=== PATIENT | male | born 1940 | race Caucasian/White ===

== ENCOUNTER 2017-07-22 09:36 | Inpatient (IN) ==
[2017-07-22] MEDS ORDERED: methylPREDNISolone SOD SUC 125 MG/2 ML VIAL IV STA (09:58)
[2017-07-22] MEDS ORDERED: ALBUTEROL 2.5 MG/3 ML NEB RESP TX SCH (10:00)
[2017-07-22 10:05] LABS: Basophils # 0.1 10*3/uL (0.0-0.2); Basophils % 0.5 % (0.0-0.8); Eosinophils % 0.2 % (0.00-10.9); Hemoglobin 9.9 GM/DL (14.0-18.0); Immature Granulocytes % 0.5 %; Immature Granulocytes Absolute 0.09 #; Lymphocytes # 0.7 10*3/uL (1.4-4.0); Mean Corpuscular Hemoglobin 25 PG (27-34); Mean Corpuscular Volume 82.3 FL (87-102); Mean Platelet Volume 8.9 FL (9.6-12.0); Monocytes # 1.5 10*3/uL (0.11-0.8); Monocytes % 8.7 % (1.7-12.7); Neutrophils # 15.1 10*3/uL (1.4-7.4); Neutrophils % 86.1 % (38.7-73.9); Platelet Count 487 T/CUMM (130-400); Red Blood Count 4.01 MC/CUMM (3.8-5.5); Red Cell Distribution Width 16.2 % (9.3-17.3); White Blood Count 17.6 T/CUMM (4-12)
[2017-07-22] MEDS ORDERED: methylPREDNISolone SOD SUC 125 MG/2 ML VIAL ONE (10:06)
[2017-07-22 10:13] LABS: INR 1.5; PT Patient Result 15.4 SECS; Partial Thromboplastin Time 36.2 SECS (0-40)
[2017-07-22 10:23] LABS: Alanine Aminotransferase 33 U/L (16-61); Albumin 2.9 G/DL (3.4-5.0); Alkaline Phosphatase 102 U/L (45-117); Aspartate Amino Transferase 36 U/L (0-37); Blood Urea Nitrogen 15 MG/DL (7-18); Calcium 9.3 MG/DL (8.5-10.1); Glucose 143 MG/DL (74-106); Osmolality,Calculated 266.5 MOS/KG (273-304); Potassium 3.9 MMOL/L (3.5-5.1); Sodium 132 MMOL/L (136-145); Total Protein 7.3 G/DL (6.4-8.3); Troponin I Only < 0.015 NG/ML (0.00-0.045)
[2017-07-22 10:37] LABS: Band Neutrophils 1 % (0-10); Hypochromasia 1+; Lymphocytes 5 % (20-55); Ovalocytes Slight; Platelet Estimate Adequate; Segmented Neutrophils 87 % (50-85); Total Cells Counted 100
[2017-07-22] MEDS ORDERED: LEVOFLOXACIN INJ 500 MG in PREMIX 1 EACH IV STA (11:51)
[2017-07-22] MEDS ORDERED: LEVOFLOXACIN INJ 100 ML IV ONE (12:20)
[2017-07-22] MEDS ORDERED: ACETAMINOPHEN 325 MG TABLET PO PRN (13:25)
[2017-07-22] MEDS ORDERED: ONDANSETRON 4 MG/2 ML VIAL IV PRN (13:25)
[2017-07-22] MEDS ORDERED: ALBUTEROL 2.5 MG/3 ML NEB RESP TX PRN (15:00)
[2017-07-22 15:26] LABS: Apearance,Urine Slightly Hazy (Clear); Bilirubin,Urine Negative (Negative); Blood, Urine Moderate mg/dL (Negative); Glucose,Urine (UA) 50 mg/dL (Negative); Ketones,Urine 20 mg/dL (Negative); Mucus,Urine Few /LPF (Occasional); Nitrite,Urine Negative (Negative); Protein,Urine 100 MG/DL; RBC,Urine 16 /HPF (0-4); Squamous Epithelial Cell,Urine Occasional /HPF (0-10); Urine Color Yellow (Yellow); Urine Specific Gravity 1.024 (1.001-1.035); Urine Urobilinogen < 2.0 EU/DL (0.2-1.0); WBC,Urine 1 /HPF (0-6)
[2017-07-22] MEDS: SODIUM CHLORIDE 0.45% 1,000 ML IV SCH (15:36)
[2017-07-22] MEDS: metFORMIN 500 MG TABLET PO SCH (16:17)
[2017-07-22] MEDS: methylPREDNISolone SOD SUC 40 MG/1 ML VIAL IV SCH (16:17)
[2017-07-22] MEDS: CALCIUM (CARBONATE)/VITAMIN D 500 MG-200 UNIT TABLET PO SCH (21:36)
[2017-07-22] MEDS: DOCUSATE SODIUM 100 MG CAPSULE PO SCH (21:37)
[2017-07-22] MEDS: ENOXAPARIN 40 MG/0.4 ML SYRINGE SUBCUT SCH (21:38)
[2017-07-22] MEDS: LORazepam 0.5 MG TABLET PO SCH (21:38)
[2017-07-22] MEDS: BUDESONIDE/FORMOTEROL 160-4.5 INHALER 6 GM INH SCH (21:39)
[2017-07-23] MEDS: methylPREDNISolone SOD SUC 40 MG/1 ML VIAL IV SCH ×3 (00:31→16:34)
[2017-07-23] MEDS: BUDESONIDE/FORMOTEROL 160-4.5 INHALER 6 GM INH SCH ×2 (08:43→22:25)
[2017-07-23] MEDS: CALCIUM (CARBONATE)/VITAMIN D 500 MG-200 UNIT TABLET PO SCH ×2 (08:43→22:24)
[2017-07-23] MEDS: DOCUSATE SODIUM 100 MG CAPSULE PO SCH ×2 (08:44→22:24)
[2017-07-23] MEDS: PANTOPRAZOLE 40 MG TABLET PO SCH (08:44)
[2017-07-23] MEDS: THEOPHYLLINE ER (24 HR) 400 MG TABLET PO SCH (08:44)
[2017-07-23] MEDS: CETIRIZINE 10 MG TABLET PO SCH (08:44)
[2017-07-23] MEDS: hydroCHLOROthiazide 12.5 MG CAPSULE PO SCH (08:46)
[2017-07-23] MEDS: metFORMIN 500 MG TABLET PO SCH ×2 (08:48→16:34)
[2017-07-23] MEDS: cefTRIAXone 1,000 MG in SYRINGE 1 EACH IV SCH (10:19)
[2017-07-23] MEDS: SODIUM CHLORIDE 0.45% 1,000 ML IV SCH (17:58)
[2017-07-23] MEDS: ENOXAPARIN 40 MG/0.4 ML SYRINGE SUBCUT SCH (22:24)
[2017-07-23] MEDS: LORazepam 0.5 MG TABLET PO SCH (22:24)
[2017-07-24] MEDS: methylPREDNISolone SOD SUC 40 MG/1 ML VIAL IV SCH ×3 (01:25→17:51)
[2017-07-24] MEDS: BUDESONIDE/FORMOTEROL 160-4.5 INHALER 6 GM INH SCH ×2 (09:00→20:22)
[2017-07-24] MEDS: hydroCHLOROthiazide 12.5 MG CAPSULE PO SCH (09:35)
[2017-07-24] MEDS: CALCIUM (CARBONATE)/VITAMIN D 500 MG-200 UNIT TABLET PO SCH ×2 (09:35→20:22)
[2017-07-24] MEDS: PANTOPRAZOLE 40 MG TABLET PO SCH (09:35)
[2017-07-24] MEDS: THEOPHYLLINE ER (24 HR) 400 MG TABLET PO SCH (09:35)
[2017-07-24] MEDS: metFORMIN 500 MG TABLET PO SCH ×2 (09:36→17:50)
[2017-07-24] MEDS: DOCUSATE SODIUM 100 MG CAPSULE PO SCH ×2 (09:36→20:22)
[2017-07-24] MEDS: cefTRIAXone 1,000 MG in SYRINGE 1 EACH IV SCH (09:39)
[2017-07-24] MEDS: CETIRIZINE 10 MG TABLET PO SCH (16:16)
[2017-07-24] MEDS: ENOXAPARIN 40 MG/0.4 ML SYRINGE SUBCUT SCH (20:22)
[2017-07-24] MEDS: LORazepam 0.5 MG TABLET PO SCH (20:22)
[2017-07-24] MEDS: SODIUM CHLORIDE 0.45% 1,000 ML IV SCH (21:50)
[2017-07-25] MEDS: methylPREDNISolone SOD SUC 40 MG/1 ML VIAL IV SCH (01:09)
[2017-07-25 06:17] LABS: Basophils % 0.1 % (0.0-0.8); Hematocrit 29.9 VOL% (42.0-52.0); Hemoglobin 9.3 GM/DL (14.0-18.0); Immature Granulocytes % 0.6 %; Immature Granulocytes Absolute 0.05 #; Lymphocytes # 0.7 10*3/uL (1.4-4.0); Lymphocytes % 8.7 % (21.2-54.2); Mean Corpuscular HGB Conc 31.1 GM/DL (32-36); Mean Corpuscular Hemoglobin 25 PG (27-34); Mean Corpuscular Volume 80.8 FL (87-102); Mean Platelet Volume 8.7 FL (9.6-12.0); Monocytes # 0.4 10*3/uL (0.11-0.8); Monocytes % 4.4 % (1.7-12.7); Neutrophils # 6.9 10*3/uL (1.4-7.4); Neutrophils % 86.2 % (38.7-73.9); Platelet Count 507 T/CUMM (130-400); Red Cell Distribution Width 16.2 % (9.3-17.3)
[2017-07-25 06:53] LABS: Calcium 8.7 MG/DL (8.5-10.1); Potassium 4.7 MMOL/L (3.5-5.1)
[2017-07-25] MEDS: metFORMIN 500 MG TABLET PO SCH ×2 (09:00→16:47)
[2017-07-25] MEDS: CALCIUM (CARBONATE)/VITAMIN D 500 MG-200 UNIT TABLET PO SCH ×2 (09:22→20:42)
[2017-07-25] MEDS: THEOPHYLLINE ER (24 HR) 400 MG TABLET PO SCH (09:22)
[2017-07-25] MEDS: hydroCHLOROthiazide 12.5 MG CAPSULE PO SCH (09:23)
[2017-07-25] MEDS: predniSONE 10 MG TABLET PO SCH (09:23)
[2017-07-25] MEDS: PANTOPRAZOLE 40 MG TABLET PO SCH (09:23)
[2017-07-25] MEDS: cefTRIAXone 1,000 MG in SYRINGE 1 EACH IV SCH (09:24)
[2017-07-25] MEDS: DOCUSATE SODIUM 100 MG CAPSULE PO SCH ×2 (09:24→20:42)
[2017-07-25] MEDS: BUDESONIDE/FORMOTEROL 160-4.5 INHALER 6 GM INH SCH ×2 (10:54→20:44)
[2017-07-25] MEDS: CETIRIZINE 10 MG TABLET PO SCH (10:54)
[2017-07-25] MEDS: LORazepam 0.5 MG TABLET PO SCH (20:42)
[2017-07-25] MEDS: ENOXAPARIN 40 MG/0.4 ML SYRINGE SUBCUT SCH (20:43)
[2017-07-26] MEDS: SODIUM CHLORIDE 0.45% 1,000 ML IV SCH (01:35)
[2017-07-26] MEDS: hydroCHLOROthiazide 12.5 MG CAPSULE PO SCH (08:25)
[2017-07-26] MEDS: CETIRIZINE 10 MG TABLET PO SCH (08:25)
[2017-07-26] MEDS: CALCIUM (CARBONATE)/VITAMIN D 500 MG-200 UNIT TABLET PO SCH ×2 (08:25→21:30)
[2017-07-26] MEDS: DOCUSATE SODIUM 100 MG CAPSULE PO SCH ×2 (08:25→21:30)
[2017-07-26] MEDS: predniSONE 10 MG TABLET PO SCH (08:25)
[2017-07-26] MEDS: THEOPHYLLINE ER (24 HR) 400 MG TABLET PO SCH (08:25)
[2017-07-26] MEDS: PANTOPRAZOLE 40 MG TABLET PO SCH (08:25)
[2017-07-26] MEDS: metFORMIN 500 MG TABLET PO SCH ×2 (08:26→17:05)
[2017-07-26] MEDS: cefTRIAXone 1,000 MG in SYRINGE 1 EACH IV SCH (08:26)
[2017-07-26] MEDS ORDERED: FUROSEMIDE 40 MG/4 ML VIAL IV ONE (08:39)
[2017-07-26] MEDS: BUDESONIDE/FORMOTEROL 160-4.5 INHALER 6 GM INH SCH ×2 (10:02→21:31)
[2017-07-26] MEDS: LORazepam 0.5 MG TABLET PO SCH (21:30)
[2017-07-26] MEDS: ENOXAPARIN 40 MG/0.4 ML SYRINGE SUBCUT SCH (21:31)
[2017-07-27] MEDS: metFORMIN 500 MG TABLET PO SCH ×2 (08:45→17:48)
[2017-07-27] MEDS: CALCIUM (CARBONATE)/VITAMIN D 500 MG-200 UNIT TABLET PO SCH ×2 (08:45→21:10)
[2017-07-27] MEDS: hydroCHLOROthiazide 12.5 MG CAPSULE PO SCH (08:45)
[2017-07-27] MEDS: DOCUSATE SODIUM 100 MG CAPSULE PO SCH ×2 (08:45→21:10)
[2017-07-27] MEDS: THEOPHYLLINE ER (24 HR) 400 MG TABLET PO SCH (08:46)
[2017-07-27] MEDS: PANTOPRAZOLE 40 MG TABLET PO SCH (08:46)
[2017-07-27] MEDS: predniSONE 10 MG TABLET PO SCH (08:46)
[2017-07-27] MEDS: CETIRIZINE 10 MG TABLET PO SCH (08:47)
[2017-07-27] MEDS: BUDESONIDE/FORMOTEROL 160-4.5 INHALER 6 GM INH SCH ×2 (08:49→21:12)
[2017-07-27] MEDS: cefTRIAXone 1,000 MG in SYRINGE 1 EACH IV SCH (08:49)
[2017-07-27] MEDS: LORazepam 0.5 MG TABLET PO SCH (21:10)
[2017-07-27] MEDS: ENOXAPARIN 40 MG/0.4 ML SYRINGE SUBCUT SCH (21:10)
[2017-07-28 07:54] VITALS: BP 141/68
[2017-07-28] MEDS: metFORMIN 500 MG TABLET PO SCH (08:24)
[2017-07-28] MEDS: DOCUSATE SODIUM 100 MG CAPSULE PO SCH (08:24)
[2017-07-28] MEDS: hydroCHLOROthiazide 12.5 MG CAPSULE PO SCH (08:25)
[2017-07-28] MEDS: CALCIUM (CARBONATE)/VITAMIN D 500 MG-200 UNIT TABLET PO SCH (08:25)
[2017-07-28] MEDS: THEOPHYLLINE ER (24 HR) 400 MG TABLET PO SCH (08:26)
[2017-07-28] MEDS: predniSONE 10 MG TABLET PO SCH (08:26)
[2017-07-28] MEDS: PANTOPRAZOLE 40 MG TABLET PO SCH (08:26)
[2017-07-28] MEDS: cefTRIAXone 1,000 MG in SYRINGE 1 EACH IV SCH (08:26)
[2017-07-28] MEDS: BUDESONIDE/FORMOTEROL 160-4.5 INHALER 6 GM INH SCH (08:26)
[2017-07-28] MEDS: CETIRIZINE 10 MG TABLET PO SCH (08:27)
== END 2017-07-28 09:25 | disposition home or self-care (01) | DRG 190 ==
LOC: N.ED 09:36 → N.EDINP 13:25 → N.2E 15:13
PROVIDERS: ADMIT Family Medicine; ATTEND Family Medicine

== ENCOUNTER 2018-05-23 14:01 | Inpatient (IN) ==
[2018-05-23] MEDS ORDERED: methylPREDNISolone SOD SUC 125 MG/2 ML VIAL IV STA (14:49)
[2018-05-23] MEDS ORDERED: ALBUTEROL/IPRATROPIUM 3 ML NEB RESP TX STA ×2 (14:49→15:07)
[2018-05-23] MEDS ORDERED: LEVOFLOXACIN INJ 500 MG in PREMIX 1 EACH IV STA (14:53)
[2018-05-23 15:00] LABS: Basophils # 0.1 10*3/uL (0.0-0.2); Basophils % 0.9 % (0.0-0.8); Eosinophils # 0.1 10*3/uL (0.0-0.87); Eosinophils % 1.2 % (0.00-10.9); Hematocrit 31.9 VOL% (42.0-52.0); Hemoglobin 9.1 GM/DL (14.0-18.0); Immature Granulocytes % 0.4 %; Immature Granulocytes Absolute 0.04 #; Lymphocytes # 0.8 10*3/uL (1.4-4.0); Lymphocytes % 8.4 % (21.2-54.2); Mean Corpuscular HGB Conc 28.5 GM/DL (32-36); Mean Corpuscular Hemoglobin 23 PG (27-34); Mean Platelet Volume 11.1 FL (9.6-12.0); Monocytes # 0.7 10*3/uL (0.11-0.8); Monocytes % 8.1 % (1.7-12.7); Neutrophils # 7.4 10*3/uL (1.4-7.4); Platelet Count 308 T/CUMM (130-400); Red Blood Count 4.04 MC/CUMM (3.8-5.5); Red Cell Distribution Width 18.3 % (9.3-17.3); White Blood Count 9.1 T/CUMM (4-12)
[2018-05-23 15:20] LABS: Anisocytosis 1+; Hypochromasia 1+
[2018-05-23 15:21] LABS: Platelet Estimate Adequate; Target Cells Few
[2018-05-23 15:32] LABS: ABG Base Excess 12.3 MMOL/L (-2.5-2.5); ABG HCO3 35.9 MMOL/L (20-26); ABG PCO2 63.2 MM HG (35-48); ABG PH 7.401 (7.35-7.45); ABG PO2 55.9 MM HG (80-95); ABG TCO2 36.5 MMOL/L (23-27)
[2018-05-23 15:36] LABS: Albumin 2.8 G/DL (3.4-5.0); Bilirubin,Total 0.6 MG/DL (0.2-1.0); Calcium 9.2 MG/DL (8.5-10.1); Potassium 3.5 MMOL/L (3.5-5.1); Total Protein 8.1 G/DL (6.4-8.3)
[2018-05-23] MEDS ORDERED: ACETAMINOPHEN 325 MG TABLET PO PRN (15:40)
[2018-05-23] MEDS ORDERED: ONDANSETRON 4 MG/2 ML VIAL IV PRN (15:40)
[2018-05-23] MEDS ORDERED: ALBUTEROL/IPRATROPIUM 3 ML NEB RESP TX PRN (15:42)
[2018-05-23] MEDS: SODIUM CHLORIDE 0.45% 1,000 ML IV SCH (18:02)
[2018-05-23] MEDS: metFORMIN 500 MG TABLET PO SCH (18:09)
[2018-05-23] MEDS: ENOXAPARIN 40 MG/0.4 ML SYRINGE SUBCUT SCH (18:10)
[2018-05-23] MEDS: methylPREDNISolone SOD SUC 125 MG/2 ML VIAL IV SCH (18:10)
[2018-05-23] MEDS: LEVOFLOXACIN INJ 500 MG in PREMIX 1 EACH IV SCH (18:11)
[2018-05-23] MEDS ORDERED: GLUCAGON 1 MG VIAL IM PRN (18:29)
[2018-05-23] MEDS ORDERED: DEXTROSE 50% 25 GM/50 ML VIAL IV PRN (18:29)
[2018-05-23] MEDS: CLINDAMYCIN INJ 600 MG in PREMIX 1 EACH IV SCH (19:23)
[2018-05-23] MEDS: ALBUTEROL 2.5 MG/3 ML NEB RESP TX SCH ×2 (19:25→22:48)
[2018-05-23] MEDS: DOCUSATE SODIUM 100 MG CAPSULE PO SCH (21:50)
[2018-05-23] MEDS: CALCIUM (CARBONATE)/VITAMIN D 500 MG-200 UNIT TABLET PO SCH (21:50)
[2018-05-23] MEDS: clonazePAM 0.5 MG TABLET PO PRN (21:50)
[2018-05-23] MEDS: BUDESONIDE/FORMOTEROL 160-4.5 INHALER 6 GM INH SCH (21:53)
[2018-05-23] MEDS: INSULIN LISPRO 100 UNIT/ML SUBCUT SCH (21:59)
[2018-05-24] MEDS: CLINDAMYCIN INJ 600 MG in PREMIX 1 EACH IV SCH ×3 (00:36→18:40)
[2018-05-24] MEDS: methylPREDNISolone SOD SUC 125 MG/2 ML VIAL IV SCH ×3 (00:36→17:07)
[2018-05-24] MEDS: ALBUTEROL 2.5 MG/3 ML NEB RESP TX SCH ×4 (03:22→15:33)
[2018-05-24 05:34] LABS: Basophils % 0.1 % (0.0-0.8); Hematocrit 26.3 VOL% (42.0-52.0); Hemoglobin 7.8 GM/DL (14.0-18.0); Immature Granulocytes % 1.5 %; Immature Granulocytes Absolute 0.17 #; Lymphocytes # 0.3 10*3/uL (1.4-4.0); Lymphocytes % 2.3 % (21.2-54.2); Mean Corpuscular HGB Conc 29.7 GM/DL (32-36); Mean Corpuscular Hemoglobin 23 PG (27-34); Mean Corpuscular Volume 77.6 FL (87-102); Mean Platelet Volume 8.9 FL (9.6-12.0); Monocytes # 0.1 10*3/uL (0.11-0.8); Monocytes % 0.7 % (1.7-12.7); Neutrophils # 10.8 10*3/uL (1.4-7.4); Neutrophils % 95.4 % (38.7-73.9); Platelet Count 389 T/CUMM (130-400); Red Blood Count 3.39 MC/CUMM (3.8-5.5); White Blood Count 11.3 T/CUMM (4-12)
[2018-05-24 05:44] LABS: Calcium 8.7 MG/DL (8.5-10.1); Osmolality,Calculated 274.1 MOS/KG (273-304); Potassium 3.5 MMOL/L (3.5-5.1)
[2018-05-24 06:12] LABS: Lymphocytes 2 % (20-55); Platelet Estimate Normal; Segmented Neutrophils 98 % (50-85); Total Cells Counted 100
[2018-05-24 06:13] LABS: Hypochromasia Slight; Polychromasia Few
[2018-05-24] MEDS: SODIUM CHLORIDE 0.45% 1,000 ML IV SCH ×2 (06:20→17:18)
[2018-05-24] MEDS: INSULIN LISPRO 100 UNIT/ML SUBCUT SCH ×4 (11:15→20:54)
[2018-05-24] MEDS: TAMSULOSIN 0.4 MG CAPSULE PO SCH (11:16)
[2018-05-24] MEDS: CALCIUM (CARBONATE)/VITAMIN D 500 MG-200 UNIT TABLET PO SCH ×2 (11:16→20:50)
[2018-05-24] MEDS: metFORMIN 500 MG TABLET PO SCH ×2 (11:16→18:00)
[2018-05-24] MEDS: THEOPHYLLINE ER (24 HR) 400 MG TABLET PO SCH (11:16)
[2018-05-24] MEDS: PANTOPRAZOLE 40 MG TABLET PO SCH (11:17)
[2018-05-24] MEDS: DOCUSATE SODIUM 100 MG CAPSULE PO SCH ×2 (11:17→20:50)
[2018-05-24] MEDS: CETIRIZINE 10 MG TABLET PO SCH (11:17)
[2018-05-24] MEDS: BUDESONIDE/FORMOTEROL 160-4.5 INHALER 6 GM INH SCH ×2 (11:18→20:50)
[2018-05-24] MEDS: LEVOFLOXACIN INJ 500 MG in PREMIX 1 EACH IV SCH (17:06)
[2018-05-24] MEDS: ENOXAPARIN 40 MG/0.4 ML SYRINGE SUBCUT SCH (17:06)
[2018-05-24] MEDS: BUDESONIDE 0.25 MG/2 ML NEB RESP TX SCH (19:14)
[2018-05-24] MEDS: ALBUTEROL/IPRATROPIUM 3 ML NEB RESP TX SCH (19:14)
[2018-05-24] MEDS: clonazePAM 0.5 MG TABLET PO PRN (20:49)
[2018-05-24] MEDS ORDERED: MAGNESIUM SULF RIDER 2 GM in PREMIX 1 EACH IV ONE (21:34)
[2018-05-24] MEDS ORDERED: SODIUM CHLORIDE 0.9% 1,000 ML IV PRN (21:37)
[2018-05-25] MEDS: ALBUTEROL/IPRATROPIUM 3 ML NEB RESP TX SCH ×4 (00:13→19:08)
[2018-05-25] MEDS: methylPREDNISolone SOD SUC 125 MG/2 ML VIAL IV SCH ×3 (01:36→16:10)
[2018-05-25] MEDS: CLINDAMYCIN INJ 600 MG in PREMIX 1 EACH IV SCH ×3 (02:07→23:12)
[2018-05-25 06:03] LABS: Basophils % 0.1 % (0.0-0.8); Hematocrit 25.4 VOL% (42.0-52.0); Hemoglobin 7.6 GM/DL (14.0-18.0); Immature Granulocytes % 0.7 %; Immature Granulocytes Absolute 0.07 #; Lymphocytes # 0.4 10*3/uL (1.4-4.0); Mean Corpuscular HGB Conc 29.9 GM/DL (32-36); Mean Corpuscular Hemoglobin 23 PG (27-34); Mean Corpuscular Volume 76.5 FL (87-102); Mean Platelet Volume 8.9 FL (9.6-12.0); Monocytes # 0.4 10*3/uL (0.11-0.8); Monocytes % 3.7 % (1.7-12.7); Neutrophils # 9.2 10*3/uL (1.4-7.4); Neutrophils % 91.5 % (38.7-73.9); Platelet Count 381 T/CUMM (130-400); Red Blood Count 3.32 MC/CUMM (3.8-5.5); Red Cell Distribution Width 17.9 % (9.3-17.3); White Blood Count 10.1 T/CUMM (4-12)
[2018-05-25 06:27] LABS: Calcium 8.4 MG/DL (8.5-10.1); Osmolality,Calculated 273.1 MOS/KG (273-304); Potassium 3.5 MMOL/L (3.5-5.1)
[2018-05-25] MEDS: BUDESONIDE 0.25 MG/2 ML NEB RESP TX SCH ×2 (07:35→19:08)
[2018-05-25 07:41] LABS: Anisocytosis 2+; Band Neutrophils 22 % (0-10); Lymphocytes 2 % (20-55); Platelet Estimate Normal; Segmented Neutrophils 75 % (50-85); Total Cells Counted 100
[2018-05-25 07:43] LABS: Hypochromasia Slight
[2018-05-25] MEDS ORDERED: hydroCHLOROthiazide 12.5 MG CAPSULE PO SCH (09:00)
[2018-05-25] MEDS: INSULIN LISPRO 100 UNIT/ML SUBCUT SCH ×4 (09:18→21:36)
[2018-05-25] MEDS: CALCIUM (CARBONATE)/VITAMIN D 500 MG-200 UNIT TABLET PO SCH (10:10)
[2018-05-25] MEDS: THEOPHYLLINE ER (24 HR) 400 MG TABLET PO SCH (10:10)
[2018-05-25] MEDS: TAMSULOSIN 0.4 MG CAPSULE PO SCH (10:11)
[2018-05-25] MEDS: PANTOPRAZOLE 40 MG TABLET PO SCH (10:11)
[2018-05-25] MEDS: metFORMIN 500 MG TABLET PO SCH ×2 (10:11→16:10)
[2018-05-25] MEDS: DOCUSATE SODIUM 100 MG CAPSULE PO SCH (10:11)
[2018-05-25] MEDS: BUDESONIDE/FORMOTEROL 160-4.5 INHALER 6 GM INH SCH ×2 (10:12→21:37)
[2018-05-25] MEDS: FLUTICASONE 50 MCG NASAL SPRAY 16 GM BOTTLE BOTH NARES SCH (10:12)
[2018-05-25] MEDS: CETIRIZINE 10 MG TABLET PO SCH (10:12)
[2018-05-25] MEDS: ALBUTEROL 2.5 MG/3 ML NEB RESP TX PRN ×2 (10:40→18:00)
[2018-05-25] MEDS ORDERED: FUROSEMIDE 40 MG/4 ML VIAL IV ONE (10:43)
[2018-05-25 10:58] LABS: ABG Base Excess 10.2 MMOL/L (-2.5-2.5); ABG HCO3 33.6 MMOL/L (20-26); ABG Oxygen Saturation 81.7 % (95-100); ABG PH 7.325 (7.35-7.45); ABG PO2 53.9 MM HG (80-95); ABG TCO2 35.9 MMOL/L (23-27); Allen Test Positive
[2018-05-25 10:59] LABS: ABG PCO2 75.2 MM HG (35-48)
[2018-05-25 15:06] LABS: ABG Base Excess 15.4 MMOL/L (-2.5-2.5); ABG HCO3 41.9 MMOL/L (20-26); ABG Oxygen Saturation 86.4 % (95-100); ABG PCO2 61.6 MM HG (35-48); ABG PH 7.451 (7.35-7.45); ABG PO2 54.9 MM HG (80-95); ABG TCO2 43.8 MMOL/L (23-27); Allen Test Positive; Pt O2 Delivery Device BIPAP
[2018-05-25 15:13] LABS: Hematocrit 35.1 VOL% (42.0-52.0)
[2018-05-25 15:22] LABS: Hemoglobin 10.6 GM/DL (14.0-18.0)
[2018-05-25] MEDS: LEVOFLOXACIN INJ 500 MG in PREMIX 1 EACH IV SCH (16:09)
[2018-05-25] MEDS: ENOXAPARIN 40 MG/0.4 ML SYRINGE SUBCUT SCH (16:09)
[2018-05-25] MEDS ORDERED: guaiFENesin 200 MG/10 ML UDCUP PO PRN (19:08)
[2018-05-25] MEDS: dilTIAZem Drip 125 MG/125 ML PREMIX IV SCH (19:16)
[2018-05-25] MEDS ORDERED: DILTIAZEM 30 MG TABLET PO SCH (21:00)
[2018-05-25] MEDS: THEOPHYLLINE 5.33 MG/ML 30 ML/BOTTLE PO SCH (23:13)
[2018-05-26] MEDS: methylPREDNISolone SOD SUC 40 MG/1 ML VIAL IV SCH ×3 (00:02→16:50)
[2018-05-26] MEDS: ALBUTEROL/IPRATROPIUM 3 ML NEB RESP TX SCH ×4 (00:30→19:48)
[2018-05-26] MEDS: dilTIAZem Drip 125 MG/125 ML PREMIX IV SCH ×2 (02:45→23:00)
[2018-05-26 04:30] LABS: Basophils % 0.1 % (0.0-0.8); Hematocrit 36.4 VOL% (42.0-52.0); Hemoglobin 10.8 GM/DL (14.0-18.0); Immature Granulocytes % 0.5 %; Immature Granulocytes Absolute 0.09 #; Lymphocytes # 0.3 10*3/uL (1.4-4.0); Lymphocytes % 1.6 % (21.2-54.2); Mean Corpuscular HGB Conc 29.7 GM/DL (32-36); Mean Corpuscular Hemoglobin 24 PG (27-34); Mean Corpuscular Volume 79.1 FL (87-102); Mean Platelet Volume 10.1 FL (9.6-12.0); Monocytes # 0.7 10*3/uL (0.11-0.8); Monocytes % 3.9 % (1.7-12.7); Neutrophils # 16.3 10*3/uL (1.4-7.4); Neutrophils % 93.9 % (38.7-73.9); Platelet Count 408 T/CUMM (130-400); Red Cell Distribution Width 17.7 % (9.3-17.3); White Blood Count 17.4 T/CUMM (4-12)
[2018-05-26 04:40] LABS: ABG Base Excess 15.7 MMOL/L (-2.5-2.5); ABG HCO3 42.3 MMOL/L (20-26); ABG Oxygen Saturation 96.1 % (95-100); ABG PCO2 62.7 MM HG (35-48); ABG PH 7.447 (7.35-7.45); ABG TCO2 44.2 MMOL/L (23-27); Allen Test Positive; Pt O2 Delivery Device BIPAP
[2018-05-26 04:44] LABS: Albumin 2.5 G/DL (3.4-5.0); Bilirubin,Total 0.7 MG/DL (0.2-1.0); Calcium 8.8 MG/DL (8.5-10.1); Osmolality,Calculated 272.2 MOS/KG (273-304); Potassium 3.8 MMOL/L (3.5-5.1); Total Protein 7.2 G/DL (6.4-8.3)
[2018-05-26 05:04] LABS: Band Neutrophils 15 % (0-10); Lymphocytes 1 % (20-55); Segmented Neutrophils 81 % (50-85); Total Cells Counted 100
[2018-05-26 05:05] LABS: Anisocytosis 1+; Platelet Estimate Normal
[2018-05-26] MEDS: THEOPHYLLINE 5.33 MG/ML 30 ML/BOTTLE PO SCH ×3 (05:45→23:02)
[2018-05-26] MEDS: CLINDAMYCIN INJ 600 MG in PREMIX 1 EACH IV SCH ×3 (05:45→23:00)
[2018-05-26] MEDS: BUDESONIDE 0.25 MG/2 ML NEB RESP TX SCH ×2 (07:11→19:48)
[2018-05-26] MEDS: BUDESONIDE/FORMOTEROL 160-4.5 INHALER 6 GM INH SCH ×2 (08:16→23:00)
[2018-05-26] MEDS: FLUTICASONE 50 MCG NASAL SPRAY 16 GM BOTTLE BOTH NARES SCH (08:16)
[2018-05-26] MEDS: TAMSULOSIN 0.4 MG CAPSULE PO SCH (08:17)
[2018-05-26] MEDS: CETIRIZINE 10 MG TABLET PO SCH (08:17)
[2018-05-26] MEDS: INSULIN LISPRO 100 UNIT/ML SUBCUT SCH ×4 (08:18→23:01)
[2018-05-26] MEDS: PANTOPRAZOLE 40 MG VIAL IV SCH (08:18)
[2018-05-26] MEDS: DOCUSATE SODIUM 100 MG/10 ML UDCUP PO SCH (08:20)
[2018-05-26] MEDS: ENOXAPARIN 40 MG/0.4 ML SYRINGE SUBCUT SCH (16:50)
[2018-05-26] MEDS: LEVOFLOXACIN INJ 500 MG in PREMIX 1 EACH IV SCH (16:53)
[2018-05-27] MEDS: ALBUTEROL/IPRATROPIUM 3 ML NEB RESP TX SCH ×6 (01:17→23:18)
[2018-05-27] MEDS: methylPREDNISolone SOD SUC 40 MG/1 ML VIAL IV SCH ×3 (01:30→16:59)
[2018-05-27] MEDS: CLINDAMYCIN INJ 600 MG in PREMIX 1 EACH IV SCH ×3 (06:15→21:43)
[2018-05-27] MEDS: THEOPHYLLINE 5.33 MG/ML 30 ML/BOTTLE PO SCH ×3 (06:15→21:43)
[2018-05-27] MEDS: BUDESONIDE 0.25 MG/2 ML NEB RESP TX SCH ×2 (07:31→19:15)
[2018-05-27] MEDS: INSULIN LISPRO 100 UNIT/ML SUBCUT SCH ×4 (09:49→20:15)
[2018-05-27] MEDS: PANTOPRAZOLE 40 MG VIAL IV SCH (10:08)
[2018-05-27] MEDS: DOCUSATE SODIUM 100 MG/10 ML UDCUP PO SCH (14:21)
[2018-05-27] MEDS: TAMSULOSIN 0.4 MG CAPSULE PO SCH (14:21)
[2018-05-27] MEDS: CETIRIZINE 10 MG TABLET PO SCH (14:22)
[2018-05-27] MEDS: FLUTICASONE 50 MCG NASAL SPRAY 16 GM BOTTLE BOTH NARES SCH (14:23)
[2018-05-27] MEDS: BUDESONIDE/FORMOTEROL 160-4.5 INHALER 6 GM INH SCH ×2 (14:23→20:15)
[2018-05-27] MEDS: ENOXAPARIN 40 MG/0.4 ML SYRINGE SUBCUT SCH (16:59)
[2018-05-27] MEDS: LEVOFLOXACIN INJ 500 MG in PREMIX 1 EACH IV SCH (17:53)
[2018-05-27] MEDS: dilTIAZem Drip 125 MG/125 ML PREMIX IV SCH (21:44)
[2018-05-27] MEDS: clonazePAM 0.5 MG TABLET PO PRN (22:00)
[2018-05-28] MEDS: methylPREDNISolone SOD SUC 40 MG/1 ML VIAL IV SCH ×3 (01:46→16:08)
[2018-05-28] MEDS: ALBUTEROL/IPRATROPIUM 3 ML NEB RESP TX SCH ×6 (03:44→23:20)
[2018-05-28] MEDS: THEOPHYLLINE 5.33 MG/ML 30 ML/BOTTLE PO SCH ×3 (05:44→22:13)
[2018-05-28] MEDS: CLINDAMYCIN INJ 600 MG in PREMIX 1 EACH IV SCH ×3 (05:52→22:17)
[2018-05-28] MEDS: BUDESONIDE 0.25 MG/2 ML NEB RESP TX SCH ×2 (06:04→19:17)
[2018-05-28 06:23] LABS: Calcium 8.9 MG/DL (8.5-10.1); Osmolality,Calculated 287.5 MOS/KG (273-304)
[2018-05-28 06:31] LABS: Prealbumin 9.3 MG/DL (20-40)
[2018-05-28 06:37] LABS: Basophils % 0.1 % (0.0-0.8); Eosinophils % 0.2 % (0.00-10.9); Hematocrit 36.3 VOL% (42.0-52.0); Immature Granulocytes % 0.4 %; Immature Granulocytes Absolute 0.04 #; Lymphocytes # 0.3 10*3/uL (1.4-4.0); Lymphocytes % 2.8 % (21.2-54.2); Mean Corpuscular HGB Conc 29.5 GM/DL (32-36); Mean Corpuscular Hemoglobin 24 PG (27-34); Mean Corpuscular Volume 80.8 FL (87-102); Monocytes # 0.5 10*3/uL (0.11-0.8); Monocytes % 5.8 % (1.7-12.7); NRBC # 0.02 10*3/uL; Neutrophils # 8.4 10*3/uL (1.4-7.4); Neutrophils % 90.7 % (38.7-73.9); Platelet Count 343 T/CUMM (130-400); Red Blood Count 4.49 MC/CUMM (3.8-5.5); Red Cell Distribution Width 18.6 % (9.3-17.3); White Blood Count 9.3 T/CUMM (4-12)
[2018-05-28 06:39] LABS: Hemoglobin 10.7 GM/DL (14.0-18.0)
[2018-05-28 06:42] LABS: Band Neutrophils 1 % (0-10); Hypochromasia 1+; Lymphocytes 6 % (20-55); Platelet Estimate Adequate; Segmented Neutrophils 88 % (50-85); Total Cells Counted 100
[2018-05-28] MEDS: INSULIN LISPRO 100 UNIT/ML SUBCUT SCH ×4 (08:45→20:09)
[2018-05-28] MEDS: PANTOPRAZOLE 40 MG VIAL IV SCH (09:08)
[2018-05-28] MEDS: CETIRIZINE 10 MG TABLET PO SCH (09:09)
[2018-05-28] MEDS: DOCUSATE SODIUM 100 MG/10 ML UDCUP PO SCH (09:09)
[2018-05-28] MEDS: TAMSULOSIN 0.4 MG CAPSULE PO SCH (09:09)
[2018-05-28] MEDS: FLUTICASONE 50 MCG NASAL SPRAY 16 GM BOTTLE BOTH NARES SCH (09:09)
[2018-05-28] MEDS: BUDESONIDE/FORMOTEROL 160-4.5 INHALER 6 GM INH SCH ×2 (09:09→21:11)
[2018-05-28] MEDS: ALBUTEROL 2.5 MG/3 ML NEB RESP TX PRN (09:35)
[2018-05-28] MEDS: ENOXAPARIN 40 MG/0.4 ML SYRINGE SUBCUT SCH (16:08)
[2018-05-28] MEDS: LEVOFLOXACIN INJ 500 MG in PREMIX 1 EACH IV SCH (16:08)
[2018-05-28] MEDS: MORPHINE 4 MG/1 ML VIAL IV PRN ×2 (20:05→21:32)
[2018-05-28] MEDS: dilTIAZem Drip 125 MG/125 ML PREMIX IV SCH (21:17)
[2018-05-29] MEDS: methylPREDNISolone SOD SUC 40 MG/1 ML VIAL IV SCH ×2 (01:13→09:17)
[2018-05-29] MEDS: ALBUTEROL/IPRATROPIUM 3 ML NEB RESP TX SCH ×3 (02:50→11:13)
[2018-05-29] MEDS: CLINDAMYCIN INJ 600 MG in PREMIX 1 EACH IV SCH (05:44)
[2018-05-29] MEDS: THEOPHYLLINE 5.33 MG/ML 30 ML/BOTTLE PO SCH (05:44)
[2018-05-29] MEDS: BUDESONIDE 0.25 MG/2 ML NEB RESP TX SCH (07:15)
[2018-05-29 08:02] VITALS: BP 119/57
[2018-05-29] MEDS: INSULIN LISPRO 100 UNIT/ML SUBCUT SCH ×2 (08:03→11:13)
[2018-05-29] MEDS: DOCUSATE SODIUM 100 MG/10 ML UDCUP PO SCH (09:17)
[2018-05-29] MEDS: TAMSULOSIN 0.4 MG CAPSULE PO SCH (09:17)
[2018-05-29] MEDS: FLUTICASONE 50 MCG NASAL SPRAY 16 GM BOTTLE BOTH NARES SCH (09:17)
[2018-05-29] MEDS: CETIRIZINE 10 MG TABLET PO SCH (09:18)
[2018-05-29] MEDS: PANTOPRAZOLE 40 MG VIAL IV SCH (09:18)
[2018-05-29] MEDS: BUDESONIDE/FORMOTEROL 160-4.5 INHALER 6 GM INH SCH (09:18)
[2018-05-29] MEDS: MORPHINE 4 MG/1 ML VIAL IV PRN ×2 (11:12→13:48)
[2018-05-29] MEDS ORDERED: LORazepam 2 MG/1 ML VIAL IV PRN (11:49)
== END 2018-05-29 14:15 | disposition expired | DRG 177 ==
LOC: N.ED 14:01 → N.EDINP 15:40 → N.2E 16:13 → N.ICU 05-25 11:53
PROVIDERS: ADMIT Family Medicine; ATTEND Family Medicine